=== PATIENT | female | born 1950 | race Caucasian/White ===

== ENCOUNTER 2020-07-05 16:31 | Emergency (ER) | payer MEDICARE ==
[2020-07-05 17:16] LABS: #Basophils 0.1 thou/uL (0.0-0.2); #Lymphocytes 1.7 thou/uL (1.20-3.40); #Monocytes 0.8 thou/uL (0.11-0.59); #Neutrophils 9.9 thou/uL (1.40-6.50); %Basophils 0.4 % (0.0-1.0); %Lymphocytes 13.6 % (21.0-51.0); %Monocytes 6.4 % (0.0-10.0); %Neutrophils 79.5 % (42.0-75.0); Hemoglobin 11.7 g/dL (12.0-16.0); Mean Corpuscular HGB CONC 34.1 g/dL (32.0-36.0); Mean Corpuscular Hemoglobin 31.7 pg (27.0-31.0); Mean Platelet Volume 6.4 fL (7.4-10.4); Platelet Count 497 thou/uL (130-400); White Blood Cell (WBC) Count 12.4 thou/uL (4.8-10.8)
[2020-07-05 17:41] LABS: ALT (SGPT) 18 U/L (8-55); AST (SGOT) 23 U/L (5-34); Albumin 3.3 g/dL (3.4-4.8); Alkaline Phosphatase 120 U/L (40-110); Anion Gap 16 mmol/L (10-20); BUN (Urea Nitrogen) 18 mg/dL (9.8-20.1); Bilirubin, Total 0.3 mg/dL (0.2-1.2); Calc. Creatinine Clearance 0 mL/min (70-130); Calcium 8.4 mg/dL (7.8-10.44); Carbon Dioxide 26 mmol/L (23-31); Chloride 94 mmol/L (98-107); Globulin 3.4 g/dL (2.4-3.5); Glucose 177 mg/dL (83-110); Potassium 3.9 mmol/L (3.5-5.1); Protein, Total 6.7 g/dL (5.8-8.1); Sodium 132 mmol/L (136-145)
[2020-07-05] MEDS ORDERED: Dexamethasone 4 MG TAB ONE (19:09)
== END 2020-07-05 20:06 | disposition home or self-care (01) ==
LOC: ERS 16:31
DX: D89.89 Other specified disorders involving the immune mechanism, not elsewhere classified (principal); J44.9 Chronic obstructive pulmonary disease, unspecified; E11.9 Type 2 diabetes mellitus without complications; I10 Essential (primary) hypertension; F17.210 Nicotine dependence, cigarettes, uncomplicated
CPT/HCPCS: 36415; 80053; 85025; 85652; 86140; 99283; J8540

== ENCOUNTER 2021-06-06 23:40 | Observation (INO) | payer MEDICARE, MEDICAID ==
[2021-06-07] MEDS ORDERED: cloNIDine 0.1 MG TAB ONE ×2 (00:19→11:14)
[2021-06-07] MEDS ORDERED: Lorazepam 2 MG/ML VIAL ONE (00:29)
[2021-06-07 00:34] LABS: #Monocytes 0.9 thou/uL (0.11-0.59); #Neutrophils 5.5 thou/uL (1.40-6.50); %Basophils 0.4 % (0.0-1.0); %Monocytes 10.2 % (0.0-10.0); %Neutrophils 65.4 % (42.0-75.0); Hemoglobin 11.5 g/dL (12.0-16.0); Mean Corpuscular HGB CONC 34.5 g/dL (32.0-36.0); Mean Corpuscular Hemoglobin 30.1 pg (27.0-31.0); Mean Corpuscular Volume 87.2 fL (78.0-98.0); Mean Platelet Volume 6.7 fL (7.4-10.4); Platelet Count 312 thou/uL (130-400); RBC Distribution Width 12.5 % (11.5-14.5); Red Blood Cell (RBC) Count 3.81 mill/uL (4.20-5.40); White Blood Cell (WBC) Count 8.4 thou/uL (4.8-10.8)
[2021-06-07 00:59] LABS: ALT (SGPT) 31 U/L (8-55); AST (SGOT) 11 U/L (5-34); Albumin 4.2 g/dL (3.4-4.8); Alkaline Phosphatase 103 U/L (40-110); Anion Gap 14 mmol/L (10-20); BUN (Urea Nitrogen) 30 mg/dL (9.8-20.1); Bilirubin, Total 0.3 mg/dL (0.2-1.2); CK (CPK) 39 U/L (29-168); Calc. Creatinine Clearance 0 mL/min (70-130); Calcium 9.2 mg/dL (7.8-10.44); Carbon Dioxide 25 mmol/L (23-31); Chloride 91 mmol/L (98-107); Globulin 2.8 g/dL (2.4-3.5); Glucose 254 mg/dL (83-110); Potassium 4.4 mmol/L (3.5-5.1); Sodium 126 mmol/L (136-145)
[2021-06-07] MEDS ORDERED: hydrALAZINE 20 MG/ML VIAL ONE (02:07)
[2021-06-07] MEDS ORDERED: Ondansetron PF 4 MG/2 ML Vial ONE (02:50)
[2021-06-07] MEDS ORDERED: Labetalol HCl 100 MG/20 ML VIAL ONE (03:35)
[2021-06-07 05:09] LABS: Troponin I Less than 0.010 ng/mL (< 0.028)
[2021-06-07 07:25] LABS: Troponin I Less than 0.010 ng/mL (< 0.028)
[2021-06-07] MEDS ORDERED: Buprenorphine 8mg/Naloxone 2mg per 1 FILM SL SCH (09:30)
[2021-06-07] MEDS ORDERED: ALPRAZolam 0.5 MG TAB PO SCH (09:30)
[2021-06-07] MEDS ORDERED: Cyclobenzaprine 10 MG TAB PO SCH (09:30)
[2021-06-07] MEDS ORDERED: Cyclobenzaprine 10 MG TAB ONE (10:01)
[2021-06-07] MEDS ORDERED: ALPRAZolam 0.25 MG TAB ONE (10:01)
[2021-06-07] MEDS: Sodium Chloride 0.9% 1,000 ML IV SCH (10:11)
[2021-06-07 10:14] LABS: #Lymphocytes 1.6 thou/uL (1.20-3.40); #Monocytes 0.7 thou/uL (0.11-0.59); #Neutrophils 6.5 thou/uL (1.40-6.50); %Eosinophils 0.1 % (0.0-10.0); %Lymphocytes 18.3 % (21.0-51.0); %Monocytes 8.3 % (0.0-10.0); %Neutrophils 73.2 % (42.0-75.0); Hemoglobin 12.8 g/dL (12.0-16.0); Mean Corpuscular HGB CONC 34.4 g/dL (32.0-36.0); Mean Corpuscular Hemoglobin 29.8 pg (27.0-31.0); Mean Corpuscular Volume 86.6 fL (78.0-98.0); Mean Platelet Volume 6.8 fL (7.4-10.4); Platelet Count 332 thou/uL (130-400); RBC Distribution Width 12.6 % (11.5-14.5); Red Blood Cell (RBC) Count 4.29 mill/uL (4.20-5.40); White Blood Cell (WBC) Count 8.9 thou/uL (4.8-10.8)
[2021-06-07] MEDS ORDERED: hydrALAZINE 25 MG TAB PO SCH (10:15)
[2021-06-07] MEDS ORDERED: Carvedilol 25 MG TAB PO SCH ×2 (10:15→21:00)
[2021-06-07] MEDS ORDERED: cloNIDine 0.3 MG TAB PO SCH (10:15)
[2021-06-07 10:19] LABS: Hemoglobin A1c 7.9 % (4.0-6.0)
[2021-06-07 10:30] LABS: Anion Gap 15 mmol/L (10-20); BUN (Urea Nitrogen) 23 mg/dL (9.8-20.1); Calc. Creatinine Clearance 0 mL/min (70-130); Calcium 9.5 mg/dL (7.8-10.44); Carbon Dioxide 24 mmol/L (23-31); Cardiac Risk 6.6 (Less than 4.5); Chloride 96 mmol/L (98-107); Cholesterol 191 mg/dl (< 200 Desired); Glucose 264 mg/dL (83-110); HDL Cholesterol 29 mg/dL (>60 Neg Risk); Iron 61 ug/dL (50-170); LDL Cholesterol, Calculated 118 mg/dL; Potassium 3.9 mmol/L (3.5-5.1); Sodium 131 mmol/L (136-145); Triglycerides 219 mg/dL (Less than 150)
[2021-06-07] MEDS ORDERED: hydrALAZINE 25 MG TAB ONE (11:14)
[2021-06-07 11:17] LABS: SARS-CoV-2 PCR by NAA Not Detected (NotDetected)
[2021-06-07 15:15] VITALS: BMI 21.2
[2021-06-07] MEDS: ALPRAZolam 0.5 MG TAB PO SCH ×2 (15:41→20:52)
[2021-06-07] MEDS: hydrALAZINE 25 MG TAB PO SCH ×2 (15:42→20:51)
[2021-06-07 16:05] LABS: Bilirubin Negative (Negative); Blood, Urine Negative (Negative); Clarity Clear (Clear); Glucose, Urine (Dipstick) 50 mg/dL (Negative); Ketone, Urine Negative (Negative); Leukocyte Negative Leu/uL (Negative); Nitrite Negative (Negative); Protein, Urine (Dipstick) Negative (Neg-Trace); Specific Gravity, Urine 1.007 (1.002-1.036); Urobilinogen Normal mg/dL (Less than 2); pH, Urine 6.5 (5.0-9.0)
[2021-06-07] MEDS: glipiZIDE 5 MG TAB PO SCH (16:58)
[2021-06-07] MEDS ORDERED: Melatonin 3 MG TAB PO SCH (20:00)
[2021-06-07] MEDS: Buprenorphine 8mg/Naloxone 2mg per 1 FILM SL SCH (20:48)
[2021-06-07] MEDS: Lisinopril 20 MG TAB PO SCH (20:49)
[2021-06-07] MEDS: Cyclobenzaprine 10 MG TAB PO SCH (20:50)
[2021-06-07] MEDS: Carvedilol 25 MG TAB PO SCH (20:51)
[2021-06-07] MEDS: cloNIDine 0.3 MG TAB PO SCH (21:00)
[2021-06-07] MEDS ORDERED: Atorvastatin Calcium 40 MG TAB PO SCH (21:00)
[2021-06-08] MEDS: Sodium Chloride 0.9% 1,000 ML IV SCH ×2 (00:38→13:06)
[2021-06-08] MEDS: Carvedilol 25 MG TAB PO SCH (10:32)
[2021-06-08] MEDS: glipiZIDE 5 MG TAB PO SCH (10:32)
[2021-06-08] MEDS: Lisinopril 20 MG TAB PO SCH (10:33)
[2021-06-08] MEDS: Cyclobenzaprine 10 MG TAB PO SCH (10:33)
[2021-06-08] MEDS: ALPRAZolam 0.5 MG TAB PO SCH (10:33)
[2021-06-08] MEDS: hydrALAZINE 25 MG TAB PO SCH (10:33)
[2021-06-08] MEDS: cloNIDine 0.3 MG TAB PO SCH ×2 (10:34→11:39)
[2021-06-08] MEDS: Buprenorphine 8mg/Naloxone 2mg per 1 FILM SL SCH (10:35)
[2021-06-08 12:38] VITALS: BP 155/63; TEMP 98.9
== END 2021-06-08 16:37 | disposition home or self-care (01) ==
LOC: ERS 23:40 → ERHOLD 06-07 03:42 → 2NO 06-07 13:23
PROVIDERS: ADMIT Specialist; ATTEND Specialist
DX: I16.0 Hypertensive urgency (principal); E87.1 Hypo-osmolality and hyponatremia; F41.1 Generalized anxiety disorder; J43.9 Emphysema, unspecified; I10 Essential (primary) hypertension; E11.9 Type 2 diabetes mellitus without complications; E78.5 Hyperlipidemia, unspecified; M19.90 Unspecified osteoarthritis, unspecified site; G89.29 Other chronic pain; M54.9 Dorsalgia, unspecified; F17.210 Nicotine dependence, cigarettes, uncomplicated; F11.21 Opioid dependence, in remission; N28.1 Cyst of kidney, acquired; Z91.19 Patient's noncompliance with other medical treatment and regimen; Z79.2 Long term (current) use of antibiotics; Z79.82 Long term (current) use of aspirin; Z79.84 Long term (current) use of oral hypoglycemic drugs; Z79.899 Other long term (current) drug therapy; Z98.1 Arthrodesis status; Z20.822 Contact with and (suspected) exposure to COVID-19
CPT/HCPCS: 71045; 76770; 80048; 80061; 81003; 82550; 82607; 82962 ×2; 83036; 83540; 83880; 84484 ×2; 87086; 93005; 96374; 96375; 99285; U0003; U0005; 36415; 36416; 80053; 84443; 85025; G0378; J0360; J2060; J2405; J7050